=== PATIENT | male | born 1980 | race Caucasian/White ===

== ENCOUNTER 2024-08-20 13:26 | Emergency (ER) | payer OTHER, SELFPAY ==
--- NOTE | ~2024-08-20 | US_ITS ---
EXAMINATION: US TRIPLEX LOWER EXTREMITY, LEFT CLINICAL INFORMATION: Left lower extremity erythema, swelling, pain, prior history of DVT COMPARISON: None available. TECHNIQUE: Color-flow triplex imaging with spectral analysis and compression Doppler were performed on the left lower extremity. FINDINGS: Respiratory variation, normal compression and augmented flow are noted throughout the left lower extremity. The visualized common femoral vein, superficial femoral vein, profunda femoral vein, popliteal vein and midcalf peroneal and posterior tibial venous segments show no evidence of deep venous thrombosis. US/US venous duplex LE LT IMPRESSION: No evidence of deep venous thrombosis involving the left lower extremity. Electronically signed by: Mikhail Noyola MD 08/20/2024 03:14 PM EDT
--- NOTE | ~2024-08-20 | XR_ITS ---
EXAMINATION: XR KNEE, LEFT CLINICAL INFORMATION: l KNEE PAIN REDNESS COMPARISON: None available. TECHNIQUE: AP oblique and lateral views of the left knee. FINDINGS: No acute cortical disruption or malalignment. No lytic or blastic lesions. No suprapatellar bursa joint effusion. No subcutaneous emphysema. No metallic or radiopaque foreign body.. XR/XR knee LT 4V IMPRESSION: No acute fracture or dislocation. Electronically signed by: Sotero Ansari MD 08/20/2024 02:26 PM EDT
[2024-08-20 13:51] VITALS: BP 121/82; PULSE 78; RESP 16; TEMP 37; O2SAT 99; BMI 24.7
--- NOTE | 2024-08-20 13:54 | ED.LOWEXIN ---
HPI - Extremity Injury (Lower) General Chief Complaint: Extremity Injury, Lower Stated Complaint: left knee cap red, hot ,pain hx blood clots Time Seen by Provider: 08/20/24 16:15 Source: patient Mode of arrival: ambulatory Limitations: no limitations History of Present Illness ED Provider: HPI Narrative: Patient's history of frequent prepatellar bursitis in the past comes here as yesterday he was working with on his knees since then noticed increased swelling and redness and warmth feeling which is spreading to the left lower leg. Patient has history of DVT in the past but there is no swelling of the calf at this time patient is a x-ray venous Doppler done prior to my evaluation which were normal no open wound of the left knee Related Data Previous Rx's ?Medication ?Instructions ?Recorded cephalexin 500 mg capsule 500 mg PO QID 10 days #40 caps 08/20/24 doxycycline hyclate 100 mg tablet 100 mg PO BID #20 tabs 08/20/24 ibuprofen 600 mg tablet 600 mg PO Q6H PRN fever or pain 08/20/24 #30 tabs Allergies Allergy/AdvReac Type Severity Reaction Status Date / Time Sulfacet-R Allergy Unknown Rash Uncoded 08/20/24 13:53 Sulfamethoxazole-TMP DS Allergy Unknown Rash Uncoded 08/20/24 13:53 Review of Systems Review of Systems: Yes all other systems are reviewed and are negative [facility] Social History Social History Advance Directives: No Advance Directives Information Provided: Yes Do you have a plan to hurt others: No Plan Physical Exam Vital Signs: Vital Signs: Last Vital Signs Temp 98.6 F 08/20/24 13:51 Pulse 78 08/20/24 13:51 Resp 16 08/20/24 13:51 BP 121/82 08/20/24 13:51 Pulse Ox 99 08/20/24 13:51 O2 Del Method Room Air 08/20/24 13:51 BMI result Body Mass Index 24.7 Appearance: Alert. Oriented X3. No acute distress. Eyes: PERRLA, No Nystagmus ENT: Pharynx normal. Oral Mucosa moist Neck: Normal inspection. Neck supple. CVS: Normal heart rate and rhythm. Pulses normal. Respiratory: No respiratory distress. Equal air entry bilateral, no wheezing/rales/rhonchi Abdomen: Soft and nontender. Bowel sounds are present, no mass palpable, no CVA tenderness Skin: Skin warm and dry. Normal skin color. Normal skin turgor. Extremities: No lower extremity edema. No calf tenderness left knee warmth and swelling of the prepatellar bursa with cellulitic changes no open wounds no knee joint effusion good range of movement Neuro: Oriented X 3. Course Course Course Narrative: This is a Rapid Medical Examination (RME) performed by Warren Fuentes PA-C in triage. Full HPI, ROS, assessment and treatment plan per primary provider in the Main ED. Hx: 44 yo M hx DVT in left lower extremity, no longer on anticoagulation here for left knee/lower leg redness/swelling. Believes this began after accidentally striking his left knee. PE/vitals: Erythema extending from left knee to lower left [place], blanching. Warm. no calf tenderness. Plan: labs, imaging Medications Administered Discontinued Medications Generic Name Dose Route Start Last Admin Trade Name Freq PRN Reason Stop Dose Admin Cephalexin HCl 500 mg 08/20/24 16:37 08/20/24 17:14 Cephalexin 500 Mg Capsule PO 08/20/24 16:38 500 mg ONCE ONE Administration Doxycycline Monohydrate 100 mg 08/20/24 16:37 08/20/24 17:14 Doxycycline Monohydrate 100 Mg Capsule PO 08/20/24 16:38 100 mg ONCE ONE Administration Medical Decision Making Medical Decision Making [facility] [place] Narrative: Patient with prepatellar bursitis knee aspiration reveal serous fluid no pus drained had elevated WBC count will give patient doxycycline cephalexin for cellulitis fluids sent for culture Differential Diagnosis Differential Diagnoses: The differential diagnosis associated with the presentation includes Cellulitis/bursitis/knee septic joint Lab Data [facility] [place] Lab Attestation statement: I reviewed the patient's lab results. 08/20/24 14:11 08/20/24 14:11 Labs: Lab Results 08/20/24 Range/Units 14:11 WBC 16.6 H (4.8-10.8) X10*3/uL RBC 4.23 L (4.60-5.80) X10*6/uL Hgb 13.9 L (14.0-18.0) g/dl Hct 39.7 L (42.0-52.0) % MCV 93.9 (80.0-98.0) fL MCH 32.9 (27.0-33.0) pg MCHC 35.0 (31.0-36.0) g/dl RDW 13.3 (11.0-16.0) % Plt Count 198 (160-400) X10*3/uL MPV 9.4 (9.4-12.4) fL Immature Gran % (Auto) 0.5 H (0.0-0.4) % Neut % (Auto) 81.7 H (45-73) % Lymph % (Auto) 9.8 L (20-40) % [place] % (Auto) 7.5 (2-11) % Eos % (Auto) 0.3 (0-4) % Baso % (Auto) 0.2 (0-2) % Lymph # (Auto) 1.6 (1.2-4.9) X10*3/uL [place] # (Auto) 1.3 H (0.1-1.2) X10*3/uL Eos # (Auto) 0.1 (0.0-0.4) X10*3/uL Baso # (Auto) 0.0 (0.0-0.2) X10*3/uL Abs Immat Gran (auto) 0.09 H (0.00-0.03) X10*3/uL Absolute Neuts (auto) 13.6 H (2.0-8.3) x10*3/uL Absolute Nucleated RBC 0.000 (0.0-0.012) X10*3/uL Nucleated RBC % (auto) 0.0 (0.0-0.2) /100WBC ESR 7 (0-15) MM/HR Sodium 138 (135-145) mmol/L Potassium 5.2 H (3.3-5.1) mmol/L Chloride 107 (96-108) mmol/L Carbon Dioxide 26 (22-29) mmol/L Anion Gap 10 L (12-20) BUN 23 H (9-16) mg/dL Creatinine 1.07 (0.5-1.4) mg/dL Estim Creat Clear Calc 89.9 Estimated GFR > 60 Random Glucose 93 (60-115) mg/dL Calcium 9.3 (8.4-10.2) mg/dL Magnesium 2.3 (1.6-2.6) mg/dL Total Bilirubin 0.9 (0.0-1.0) mg/dL AST 115 H (5-37) U/L ALT 76 H (0-40) U/L Alkaline Phosphatase 55 (39-117) U/L C-Reactive Protein 12.05 H (< or = 0.50) mg/dL Total Protein 7.1 (6.5-8.0) g/dL Albumin 4.4 (3.5-5.0) g/dL Discharge Plan Discharge Clinical Impression: Bursitis, prepatellar, left, Cellulitis Patient Disposition: Home, Self-Care Instructions: Cellulitis (ED), Knee Bursitis (ED) Additional Instructions: Take antibiotic as prescribed Rest to your left knee Report to the ER/PCP if increased swelling redness of the knee at this time clinically you have inflammation of the bursa at the left knee and cellulitis of the skin no signs of deeper infection your ultrasound is negative for blood clots in your left leg Prescriptions: New cephalexin 500 mg capsule 500 mg PO QID 10 Days Qty: 40 0RF ibuprofen 600 mg tablet 600 mg PO Q6H PRN (Reason: fever or pain) Qty: 30 0RF doxycycline hyclate 100 mg tablet 100 mg PO BID Qty: 20 0RF Print Language: Mohawk
[2024-08-20 14:15] LABS: MANUAL DIFF FLAG NO
[2024-08-20 14:17] LABS: Hematocrit 39.7 % (42.0-52.0); Hemoglobin 13.9 g/dl (14.0-18.0); Imm Gran Abs Auto 0.09 X10*3/uL (0.00-0.03); Imm Gran Pct Auto 0.5 % (0.0-0.4); Lymphocytes Absolute Auto 1.6 X10*3/uL (1.2-4.9); Mean Corpuscular HGB Conc 35.0 g/dl (31.0-36.0); Mean Corpuscular Hemoglobin 32.9 pg (27.0-33.0); Mean Corpuscular Volume 93.9 fL (80.0-98.0); NRBC Abs Auto 0.000 X10*3/uL (0.0-0.012); NRBC Pct Auto 0.0 /100WBC (0.0-0.2); Platelet Count 198 X10*3/uL (160-400); Red Blood Count 4.23 X10*6/uL (4.60-5.80); White Blood Count 16.6 X10*3/uL (4.8-10.8)
[2024-08-20 14:32] LABS: Alanine Aminotransferase 76 U/L (0-40); Albumin Level 4.4 g/dL (3.5-5.0); Alkaline Phosphatase 55 U/L (39-117); Anion Gap 10 (12-20); Aspartate Amino Transferase 115 U/L (5-37); Blood Urea Nitrogen 23 mg/dL (9-16); Calcium 9.3 mg/dL (8.4-10.2); Carbon Dioxide 26 mmol/L (22-29); Chloride 107 mmol/L (96-108); Creatinine Clr Calc Pharmacy 89.9; Estimated Glomerular Filt Rate > 60; Magnesium 2.3 mg/dL (1.6-2.6); Potassium 5.2 mmol/L (3.3-5.1); Sodium 138 mmol/L (135-145); Total Protein 7.1 g/dL (6.5-8.0)
--- OUTSIDE RECORDS SUMMARY | 2024-08-20 15:22 | XMS_ITS | Clinical Summary ---
Author Organization [facility] Address [address] [place] [address] Care Team Providers Care Painter Assistant Name Role Phone Unavailable Primary Care Provider Unavailabl e Social History Tobacco Use Types Packs/Day Years Used Date Smoking Tobacco: Never Assessed Sex and Gender Information Value Date Recorded Sex Assigned at Not on file Legal Sex Male 12:18 PM EDT Gender Identity Not on file Sexual Orientation Not on file Plan of Treatment Health Maintenance Due Date Last Done Comments Hepatitis C Virus Screening 1982 HIV Screening 1995 DTaP/Tdap/Td Vaccines (1 - Tdap) 2001 Hepatitis B Vaccines (1 of 3 - 19+ 3-dose series) 2001 COVID-19 Vaccine (2023-2 5 season) 2023 HPV Vaccines Aged Out No longer eligi ble based on patient's age to complete this topic Pneumococcal Vaccine: Pediat nicolas (0-5 Years) and At-Risk Patients (6 to 49 Years) Aged Out No longer eligible b ased on patient's age to complete this topic
[2024-08-20 17:48] VITALS: BP 121/82; PULSE 78; RESP 16; TEMP 37; O2SAT 99
== END 2024-08-20 17:15 | disposition home or self-care (01) ==
PROVIDERS: Physician Assistant Medical; Emergency Provider Internal Medicine
DX: M70.52 Other bursitis of knee, left knee (principal); L03.116 Cellulitis of left lower limb; R60.0 Localized edema; Z79.899 Other long term (current) drug therapy
CPT/HCPCS: 36415; 73564; 80053; 83735; 85025; 85652; 86140; 87070; 87073; 87147; 87205; 93971; 99284

== ENCOUNTER → 2024-08-20 13:53 | Outpatient (BNV) | payer OTHER, SELFPAY | PROVIDERS: Visit Provider Radiology Diagnostic Radiology | DX: R22.42 Localized swelling, mass and lump, left lower limb (principal); M25.562 Pain in left knee | CPT/HCPCS: 73564 ==